=== PATIENT | female | born 1985 | race Caucasian/White ===

== ENCOUNTER 2018-11-18 18:44 | Emergency (ER) | payer OTHER ==
[2018-11-18] MEDS ORDERED: ALBUTEROL SULFATE 0.083% NEB 2.5 MG/3 ML AMPUL NEB ONE (20:47)
--- NOTE | 2018-11-18 21:13 | ER Document Report ---
ED Respiratory Problem - General Chief Complaint: Breathing Difficulty Stated Complaint: SHORT OF BREATH Time Seen by Provider: 11/18/18 20:40 Notes: 33-year-old female patient emergency department chief complaint shortness of breath. Patient states he was diagnosed with flu 2 weeks ago. Has had worsening shortness of breath since that time. Patient does smoke. Patient is currently on antibiotics. Has had abdominal pain off and on today. Just started azithromycin yesterday and took her first 2 tablets yesterday. Having a mild cough. Shortness of breath. Was seen at the urgent care x2 and decided to come here for further evaluation because she feels bad. She does smoke. She does take control pills. No prior DVT or PE. No Significant family history of blood clots TRAVEL OUTSIDE OF THE [place] IN LAST 30 DAYS: No - HPI Patient complains to provider of: Short of breath Onset: Last week Duration: Continuous Quality of pain: No pain Severity: Moderate Pain Level: Denies - Related Data Allergies/Adverse Reactions: latex Allergy (Verified 11/18/18 18:49) Past Medical History - General Information source: Patient - Social History Smoking Status: Current Every Day Smoker Frequency of alcohol use: None Drug Abuse: None Lives with: Spouse/Significant other Family History: Reviewed & Not Pertinent - Medical History Medical History: Negative Review of Systems - Review of Systems Notes: Constitutional: denies: Chills, Diaphoresis, Fever, Malaise, Weakness EENT: denies: Eye discharge, Blurred vision, Tearing, Double vision, Nose congestion, Nose discharge, Throat swelling, Mouth pain Cardiovascular: denies: Palpitations, Heart racing, Orthopnea, Dyspnea, Chest pain Respiratory: denies: Cough, Hurts to breathe, Wheezing, +Shortness of breath Gastrointestinal: denies: Abdominal pain, Diarrhea, Nausea, Vomiting, Black stools, bright red blood in stool Genitourinary: denies: Burning, Dysuria, Discharge, Frequency, Flank pain, Hematuria Musculoskeletal: denies: Joint pain, Joint swelling, Muscle pain, Muscle stiffness, back pain Hematologic/Lymphatic: denies: Anemia, Easy bleeding, Easy bruising, Blood clots Neurological/Psychological: denies: Confusion, Dementia, Depression, Loss of consciousness Skin: No lesions, no masses, no skin breakdown, no abscesses Physical Exam - Vital signs Vitals: Temp Pulse Resp BP Pulse Ox 98.9 F 85 18 115/65 100 11/18/18 18:50 11/18/18 18:50 11/18/18 18:50 11/18/18 18:50 11/18/18 18:50 Interpretation: Normal - General General appearance: Appears well, Alert - HEENT Head: Normocephalic, Atraumatic Eyes: Normal Pupils: PERRL - Respiratory Respiratory status: No respiratory distress Chest status: Nontender Breath sounds: Normal Chest palpation: Normal - Cardiovascular Rhythm: Regular Heart sounds: Normal auscultation Murmur: No - Abdominal Inspection: Normal Distension: No distension Bowel sounds: Normal Tenderness: Nontender Organomegaly: No organomegaly - Back Back: Normal, Nontender - Extremities General upper extremity: Normal inspection, Nontender, Normal color, Normal ROM, Normal temperature General lower extremity: Normal inspection, Nontender, Normal color, Normal ROM, Normal temperature, Normal weight bearing. No: Mariano's sign - Neurological Neuro grossly intact: Yes Cognition: Normal Orientation: AAOx4 [place] Coma Scale Eye Opening: Spontaneous Adri Coma Scale Verbal: Oriented Adri Coma Scale Motor: Obeys Commands [place] Coma Scale Total: 15 Speech: Normal Motor strength normal: LUE, RUE, LLE, RLE Sensory: Normal - Psychological Associated symptoms: Normal affect, Normal mood - Skin Skin Temperature: Warm Skin Moisture: Dry Skin Color: Normal Course - Re-evaluation Re-evalutation: 11/18/18 22:15 Due to the fact that patient was having significant dyspnea even though her heart rate was negative and her oxygen sats were 99% I ordered a d-dimer. The d-dimer is normal. Unlikely patient has a pulmonary embolism. Chest x-ray is unremarkable. Patient has no chest pain. She has no peripheral edema. No signs or symptoms suggestive of significant congestive heart failure. Has a normal heart size on chest x-ray. Patient is not hypotensive or extremely hypertensive. At this time I am going to start her on some steroids and albuterol have her continue with her antibiotics. Laboratory 11/18/18 21:30 D-Dimer 0.27 Chest X-Ray 11/18/18 20:47 IMPRESSION: No acute disease. 11/18/18 22:17 - Vital Signs Vital signs: Temp Pulse Resp BP Pulse Ox 98.9 F 85 18 115/65 100 11/18/18 18:50 11/18/18 18:50 11/18/18 18:50 11/18/18 18:50 11/18/18 18:50 Discharge - Discharge Clinical Impression: Bronchitis Condition: Good Disposition: HOME, SELF-CARE Instructions: Bronchitis With Bronchospasm (Wheezing) ([facility]), Bronchodilators ([facility]) Additional Instructions: Please follow-up with your regular doctor. Return for any worsening symptoms or concerns. Prescriptions: Albuterol Sulfate [Proair HFA Inhalation Aerosol 8.5 gm MDI] 2 puff IH Q4H PRN #1 mdi PRN Reason: Prednisone [Deltasone 20 mg Tablet] 3 tab PO DAILY 4 Days #12 tablet Forms: Return to Work
--- NOTE | 2018-11-18 21:23 | RADIOLOGY REPORT (SQ) ---
EXAM DESCRIPTION: XR CHEST 2 VIEWS COMPLETED DATE/TME: 11/18/2018 20:47 CLINICAL HISTORY: 33 years, Female, sob Findings: The heart is not enlarged. Aorta is within normal limits. No consolidation or pleural effusion. No pulmonary edema or pneumothorax. IMPRESSION: No acute disease.
[2018-11-18] MEDS ORDERED: PREDNISONE 20 MG TABLET PO ONE (22:18)
[2018-11-18] MEDS ORDERED: ALBUTEROL SULFATE HFA (90 MCG/PUFF) 8 GM MDI (1 MDI/ER DISP) IH ONE (22:26)
[2018-11-18 22:30] VITALS: BP 107/67
== END 2018-11-18 22:38 | disposition home or self-care (01) ==
LOC: ER 18:44
DX: J40 Bronchitis, not specified as acute or chronic (principal); R06.02 Shortness of breath; R10.9 Unspecified abdominal pain; F17.200 Nicotine dependence, unspecified, uncomplicated; Z79.3 Long term (current) use of hormonal contraceptives; Z91.040 Latex allergy status
CPT/HCPCS: 94640; 99285; 36415; 85379; 71046; J7512; J3490